=== PATIENT | male | born 1960 | race Two or more races ===

== ENCOUNTER 2017-01-10 12:19 | Emergency (ER) | payer OTHER ==
[~2017-01-10] VITALS: Ht 182.9 cm; Wt 102.1 kg
[2017-01-10] MEDS ORDERED: ACETAMINOPHEN 500 MG TAB PO ONE ×2 (12:23→12:30)
[2017-01-10 12:48] VITALS: BP 120/78
[2017-01-10] MEDS ORDERED: cefTRIAXone SOD 1,000 MG VL IM ONE (13:15)
== END 2017-01-10 13:35 | disposition home or self-care (01) ==
LOC: ER 12:19
DX: N39.0 Urinary tract infection, site not specified (principal)
CPT/HCPCS: 81002; 96372; 99283; J0696

== ENCOUNTER 2019-01-16 08:08 | Emergency (ER) | payer OTHER ==
[~2019-01-16] VITALS: Ht 152.4 cm; Wt 102.1 kg
[2019-01-16 08:31] VITALS: BP 146/84
[2019-01-16] MEDS ORDERED: METHOCARBAMOL 500 MG TAB PO ONE (09:00)
[2019-01-16] MEDS ORDERED: KETOROLAC TROMETH 60MG/2ML VIAL IM ONE (09:00)
== END 2019-01-16 09:35 | disposition home or self-care (01) ==
LOC: ER 08:10
DX: G44.209 Tension-type headache, unspecified, not intractable (principal); M54.2 Cervicalgia; R42 Dizziness and giddiness; I10 Essential (primary) hypertension
CPT/HCPCS: 96372; 99283; J1885